=== PATIENT | male | born 1975 | race African-American/Black ===

== ENCOUNTER 2024-12-30 16:56 | Emergency (ER) | payer OTHER, SELFPAY ==
[2024-12-30 17:04] VITALS: BP 121/84
[2024-12-30 17:23] LABS: Hematocrit 39.0 % (39.0-52.0); Hemoglobin 12.5 g/dL (13.0-18.0); Mean Corp Hgb Conc. 32.1 g/dL (33.0-37.0); Mean Corpuscular Volume 73.3 fL (80.0-94.0); Nucleated Red Blood Cells % 0 % (-); Platelet Count 229 10^3/uL (130-400); Red Cell Dist. Width 12.1 % (11.5-14.5)
[2024-12-30 17:41] LABS: ALT (SGPT) 38 U/L (0-50); AST (SGOT) 29 U/L (17-59); Albumin 4.9 g/dl (3.5-5.0); Alkaline Phosphatase 53 U/L (38-126); Blood Urea Nitrogen 15 mg/dl (9-20); Calcium 9.3 mg/dl (8.4-10.2); Carbon Dioxide 26 mmol/L (22-30); Chloride 107 mmol/L (98-107); Glucose 107 mg/dl (70-99); Lipase 162 U/L (23-300); Potassium 4.4 mmol/L (3.5-5.1); Sodium 141 mmol/L (135-145); Total Protein 8.3 g/dl (6.3-8.2); eGFR > 60.00
--- NOTE | 2024-12-30 18:42 | EDRN ---
Pt is on list next to get a room. Pt came up and spoke to credit reporting clerk that he is feeling better and may wish to leave.
--- NOTE | 2024-12-30 18:46 | EDRN ---
Reviewed w/pt declination of services paperwork. Pt has decided to leave.
== END 2024-12-30 18:47 | disposition left against medical advice (07) ==
LOC: EMR 16:56
PROVIDERS: Emergency Medicine; EMERGENCY PHYSICIAN Surgery
DX: R10.10 Upper abdominal pain, unspecified (principal); Z53.21 Procedure and treatment not carried out due to patient leaving prior to being seen by health care provider
CPT/HCPCS: 80053; 83690; 85025